=== PATIENT | male | born 1970 | race African-American/Black ===

== ENCOUNTER 2017-04-27 13:20 | Emergency (ER) | payer MEDICAID ==
[~2017-04-27] VITALS: Ht 175.3 cm; Wt 70.0 kg
[2017-04-27 13:24] VITALS: BP 133/97
== END 2017-04-27 14:50 | disposition left against medical advice (07) ==
LOC: ER 13:20 → CANBEDREQ 16:14
DX: G45.9 Transient cerebral ischemic attack, unspecified (principal); I10 Essential (primary) hypertension; Z86.73 Personal history of transient ischemic attack (TIA), and cerebral infarction without residual deficits; Z87.891 Personal history of nicotine dependence
CPT/HCPCS: 99283

== ENCOUNTER 2017-10-08 18:58 | Emergency (ER) | payer MEDICAID ==
[~2017-10-08] VITALS: Ht 182.9 cm; Wt 84.0 kg
[2017-10-09 02:27] VITALS: BP 128/99
[2017-10-09] MEDS ORDERED: BACITRACIN ZINC OINT UDPKT TOP ONE (02:45)
== END 2017-10-09 02:50 | disposition home or self-care (01) ==
LOC: ER 18:58
DX: S01.81XA Laceration without foreign body of other part of head, initial encounter (principal); S80.212A Abrasion, left knee, initial encounter; V43.52XA Car driver injured in collision with other type car in traffic accident, initial encounter; Y93.89 Activity, other specified; Y92.410 Unspecified street and highway as the place of occurrence of the external cause; I10 Essential (primary) hypertension; E78.00 Pure hypercholesterolemia, unspecified; I25.2 Old myocardial infarction; Z86.73 Personal history of transient ischemic attack (TIA), and cerebral infarction without residual deficits
CPT/HCPCS: 12002; 99283; Z7610